=== PATIENT | female | born 1990 | race Caucasian/White ===

== ENCOUNTER 2019-05-21 09:28 | Day surgery (SDC) | payer OTHER, MEDICAID ==
[2019-05-21] MEDS ORDERED: Sodium Chloride 0.9% 1,000 ML IV SCH (10:45)
[2019-05-21] MEDS ORDERED: metroNIDAZOLE/Normal Saline 500 MG in Premix Bag 1 BAG IV ONE (11:00)
[2019-05-21] MEDS ORDERED: ceFAZolin 2 GM in Sodium Chloride 0.9% 50 ML IV ONE (11:00)
[2019-05-21] MEDS ORDERED: Ropivacaine 38 ML, dexAMETHasone 8 MG, EPINEPHrine 0.4 MG, Sodium Chloride 0.9% 39.6 ML NERVRT SCH ×4 (11:15)
[2019-05-21] MEDS ORDERED: Neostigmine Methylsulfate 1 MG/ML 5 ML Syringe ONE (12:47)
[2019-05-21] MEDS ORDERED: Propofol 200 MG/20 ML SDV ONE (12:47)
[2019-05-21] MEDS ORDERED: fentaNYL 250 MCG/5 ML SDV ONE (12:47)
[2019-05-21] MEDS ORDERED: Dexamethasone 4 MG/ML SDV ONE (12:47)
[2019-05-21] MEDS ORDERED: Glycopyrrolate 0.2 MG/ML 5 ML MDV ONE (12:47)
[2019-05-21] MEDS ORDERED: Rocuronium 50 MG/5 ML Vial ONE (12:47)
[2019-05-21] MEDS ORDERED: Ondansetron 4 MG/2 ML SDV ONE (12:47)
[2019-05-21] MEDS ORDERED: Succinylcholine 200 MG/10 ML MDV ONE (12:47)
[2019-05-21] MEDS ORDERED: Bupivacaine 0.5%/EPINEPHrine 1:200,000 50 ML MDV ONE ×2 (13:07→13:44)
[2019-05-21] MEDS ORDERED: Sugammadex Sodium 200 MG/2 ML VIAL ONE (14:54)
[2019-05-21] MEDS ORDERED: traMADol 50 MG Tab PO ONE (16:05)
--- NOTE | 2019-05-21 16:22 | OR ---
DATE OF PROCEDURE: 05/21/2019 SURGEON: Vikram Severino MD PROCEDURE PERFORMED: Incarcerated umbilical hernia repair, open. COMPLICATIONS: None. CLIENT SERVICES REPRESENTATIVE: None. ANESTHESIA: General/local. RISKS: Risks, benefits, alternatives, and limitations including, but not limited to, infection, bleeding, and injury to abdominal structures were explained to the patient, who wished to proceed. PROCEDURE IN DETAIL: The patient was placed in supine position. A midline abdominal incision was made of approximately 2 cm in size. This was carried down with electrocautery to the hernia which was identified. This was incarcerated containing fat from the abdominal cavity. This was reduced back within the abdomen. The hernia itself was approximately 1 cm in size. This was repaired with interrupted #1 Vicryl sutures x3. The superficial tissues were approximated with 3-0 Vicryl. The skin was closed with 4-0 Vicryl. Dermabond was applied. The patient tolerated the procedure well. Vikram Severino MD /[id number]
--- NOTE | 2019-05-24 08:24 | OR ---
DATE OF PROCEDURE: 05/21/2019 SURGEON: Vikram Severino MD PROCEDURE: Rectus sheath blocks bilaterally. COMPLICATION: None. CONTRIBUTION SOLICITOR: None. RISKS: Risks, benefits, alternatives, and limitations including, but not limited to infection, bleeding, and injury to the abdominal structures were explained to the patient, who wished to proceed. PROCEDURE IN DETAIL: The patient was placed in supine position. The right rectus posterior sheath was identified under 13 megahertz ultrasound probe. The syringe was advanced to this area, tested with saline, and then 80% of solution was injected. The other side was then performed in same manner, same fashion, same technique, in the same sequence using the same equipment, except for different needle and syringe. Of note, the needle did not pass into the peritoneum. Vikram Severino MD /[id number]
== END 2019-05-21 16:30 | disposition home or self-care (01) ==
LOC: JP.SDS 09:28
PROVIDERS: ATTEND Surgery
DX: K42.0 Umbilical hernia with obstruction, without gangrene (principal); G43.909 Migraine, unspecified, not intractable, without status migrainosus; F17.210 Nicotine dependence, cigarettes, uncomplicated; E66.3 Overweight; Z68.27 Body mass index [BMI] 27.0-27.9, adult; Z88.0 Allergy status to penicillin
CPT/HCPCS: 49587; A9270; J0171; J0330; J0690; J1100; J2405; J2704; J2710; J2795; J3010; J3490; J7030; J7050